=== PATIENT | female | born 1960 | race Caucasian/White ===

== ENCOUNTER → 2017-12-03 | Outpatient (CLI) | payer MEDICARE, OTHER ==
[~2017-12-03] MED LIST: CATHETER FLUSH 10 ML SYR IV PRN; REGADENOSON 0.4 MG/5 ML SYR (LEXISCAN) IV ONE
[2017-12-03 08:53] VITALS: BP 116/70
--- NOTE | 2017-12-03 09:51 | Cardiology Stress Test Report ---
Stress Test Report Type of NM Stress Test: Test Type: LEXISCAN 0.4MG/5ML Date of Procedure/Referring: Date of Procedure: Dec 03, 2017 PCP Anuj Rose MD Admitting Physician Janis Garibay MD Indications: Anterior chest wall pain, shortness of breath, diabetes, hypertension, active smoking Baseline Heart Rate: 100 Baseline Blood Pressure: Blood Pressure Systolic: 116 Blood Pressure Diastolic: 70 Baseline EKG: Baseline EKG: sinus rhythm Summary & Conclusion: Summary: The patient was brought to the stress lab after informed consent was taken. Stress test was performed according to the Lexiscan protocol. 0.4 mg of IV Lexiscan was given. Baseline EKG showed sinus rhythm at 100 BPM. Initial blood pressure was 116/70 mmHg. Maximum heart rate was 114 bpm and blood pressure 137/85 mmHg. Patient did not have any chest pain, arrhythmias or ST segment changes during the stress test. 10.71 mCi of Myoview were given for rest imaging and 29.1 mCi of Myoview given for stress imaging. Transient ischemic dilatation score 1.03, EF 69 percent. Normal wall motion. Normal myocardial perfusion imaging during rest and stress. Conclusion: Pharmacological stress test was negative for ischemia. Normal LV function with no wall motion abnormalities. Normal myocardial perfusion imaging during rest and stress. Anuj ROSE MD Dec 03, 2017 9:51 am
== END ==
LOC: CARD 07:21
PROVIDERS: ATTEND Internal Medicine Interventional Cardiology
DX: Z01.810 Encounter for preprocedural cardiovascular examination (principal); R07.89 Other chest pain; E11.9 Type 2 diabetes mellitus without complications; R79.89 Other specified abnormal findings of blood chemistry; B19.20 Unspecified viral hepatitis C without hepatic coma; I10 Essential (primary) hypertension; R06.02 Shortness of breath; F17.200 Nicotine dependence, unspecified, uncomplicated; E66.01 Morbid (severe) obesity due to excess calories
CPT/HCPCS: 78452; 93017

== ENCOUNTER → 2018-03-02 | Outpatient (CLI) | payer MEDICARE ==
[~2018-03-02] MED LIST changes: +BUPR100T15 PO; +BUSP10TA95 PO; +CARB200T6 PO; -CATHETER FLUSH 10 ML SYR IV PRN; +CHOL100045 PO; +CHOL4PAC2 PO; +GLIM1TAB PO; +LEVO75TA6 PO; +LISI-552 PO; +LORA1TAB PO; +METF-397 PO; +OMEP20CA12 PO; -REGADENOSON 0.4 MG/5 ML SYR (LEXISCAN) IV ONE; +SAXA5TAB PO; +TERA10CA3 PO
== END ==
LOC: EDSEX → LAB 08:46
PROVIDERS: ATTEND Internal Medicine Endocrinology, Diabetes & Metabolism
DX: E11.9 Type 2 diabetes mellitus without complications (principal); D35.2 Benign neoplasm of pituitary gland
CPT/HCPCS: 36415; 82040; 83001; 83002; 84270; 84402; 84403

== ENCOUNTER 2018-03-04 05:32 | Outpatient (CLI) | payer MEDICARE ==
[~2018-03-04] VITALS: Ht 170.2 cm; Wt 122.9 kg
[2018-03-04] MEDS ORDERED: CARB200T6 PO (09:37)
[2018-03-04] MEDS ORDERED: GLIM1TAB PO (09:37)
[2018-03-04] MEDS ORDERED: CHOL100045 PO (09:37)
[2018-03-04] MEDS ORDERED: BUPR100T15 PO (09:37)
[2018-03-04] MEDS ORDERED: TERA10CA3 PO (09:37)
[2018-03-04] MEDS ORDERED: LISI-552 PO (09:37)
[2018-03-04] MEDS ORDERED: SAXA5TAB PO (09:37)
[2018-03-04] MEDS ORDERED: METF-397 PO (09:37)
[2018-03-04] MEDS ORDERED: LORA1TAB PO (09:37)
[2018-03-04] MEDS ORDERED: LEVO75TA6 PO (09:37)
[2018-03-04] MEDS ORDERED: CHOL4PAC2 PO (09:37)
[2018-03-04] MEDS ORDERED: OMEP20CA12 PO (09:37)
[2018-03-04] MEDS ORDERED: BUSP10TA95 PO (09:37)
== END 2018-03-04 10:00 | disposition home or self-care (01) ==
LOC: PREOP 05:32 → EDSEX 05:32 → PREOP 10:00
PROVIDERS: ATTEND Surgery
DX: Z01.818 Encounter for other preprocedural examination (principal)

== ENCOUNTER 2018-03-11 09:21 | Day surgery (SDC) | payer MEDICARE, OTHER ==
[~2018-03-11] VITALS: Ht 170.2 cm; Wt 122.9 kg
[2018-03-11] MEDS ORDERED: fentaNYL INJECTION 100 MCG/2 ML AMP IVP ONE (09:30)
[2018-03-11] MEDS ORDERED: MIDAZOLAM 2 MG/2 ML (VERSED) VIAL IVP ONE (09:30)
[2018-03-11] MEDS ORDERED: NS IV 500 ML 500 ML IV PRN (09:30)
[2018-03-11 09:56] VITALS: BP 148/83
[2018-03-11] MEDS ORDERED: MIDAZOLAM 2 MG/2 ML (VERSED) VIAL ONE ×6 (10:00→10:46)
[2018-03-11] MEDS ORDERED: fentaNYL INJECTION 100 MCG/2 ML AMP ONE ×2 (10:00→10:29)
[2018-03-11] MEDS ORDERED: LIDOCAINE JELLY 2% 6 ML SYRINGE ONE (10:00)
--- NOTE | 2018-03-11 10:29 | Conscious Sedation/ASA ---
Conscious Sedation Pre-Proced Time 09:30 ASA Score 3 For ASA 3 and 4: Consider anesthesia and medical clearance. Also, for patients with a history of failed moderate sedation consider anesthesia. Airway Lungs Heart ASA score ASA 1: a normal healthy patient ASA 2: a patient with a mild systemic disease (mid diabetes, controlled hypertension, obesity ASA 3: a patient with a severe systemic disease that limits activity (angina , COPD, prior Myocardial infarction) ASA 4: a patient with an incapacitating disease that is a constant threat to life (CHF, renal failure) ASA 5: a moribund patient not expected to survive 24 hrs. (ruptured aneurysm) ASA 6: a declared brain patient whose organs are being harvested. For emergent operations, add the letter E after the classification Mallampati Classification Grade 3 Sedation Plan Analgesia, Amnesia, Plan communicated to team members, Discussed options with patient/fam, Discussed risks with patient/fam The patient is an appropriate candidate to undergo the planned procedure, sedation, and anesthesia. The patient immediately re-assessed prior to indication. HAILE QUIGLEY MD Mar 11, 2018 10:29
[2018-03-11] MEDS ORDERED: morphine INJ 10 MG/ML 1ML (SYR OR VIAL) IV PRN (10:30)
[2018-03-11] MEDS ORDERED: ONDANSETRON 4 MG/2 ML (SDV) Z0FRAN IV PRN (10:30)
[2018-03-11] MEDS ORDERED: HYDROcodone/APAP 5 MG/325 MG (LORTAB) TAB PO PRN (10:30)
[2018-03-11] MEDS ORDERED: ACETAMINOPHEN 325 MG TABLET PO PRN (10:30)
--- NOTE | 2018-03-11 10:30 | Progress Note-Pre Operative ---
Pre-Operative Progress Note H&P Reviewed The H&P was reviewed, patient examined and no changes noted. Date Seen by Provider: Mar 11, 2018 Time Seen by Provider: :30 Date H&P Reviewed: Mar 11, 2018 Time H&P Reviewed: :30 Pre-Operative Diagnosis: HAILE PARIS MD Mar 11, 2018 10:30
[2018-03-11] MEDS ORDERED: PANT40TA2 PO (10:31)
--- NOTE | 2018-03-11 10:32 | Discharge Inst-Surgical ---
D/C Lap Instructions-KIDO New, Converted, or Re-Newed RX: RX on Chart Follow Up PRN Activity as tolerated High Fiber Diet 25g or more per day Avoid Alcohol, Caffeine, Spicy Warner and Acid foods. Drink 64 fluid oz or more of fluids per day. Symptoms to Report: Fever over 101 degree F, Nausea/Vomiting If any problems/questions: Contact your physician or go to Emergency Room HAILE QUIGLEY MD Mar 11, 2018 10:32
[2018-03-11 11:05] VITALS: BP 119/61
[2018-03-11] MEDS ORDERED: LIDOCAINE JELLY 2% 6 ML SYRINGE TOP ONE (11:15)
--- NOTE | 2018-03-11 11:18 | Progress Note-Post Operative ---
Post-Operative Progess Note Surgeon (s)/Saddle Stitch Operator (s) Surgeon HAILE QUIGLEY MD Saddle Stitch Operator: none Pre-Operative Diagnosis GERD Post-Operative Diagnosis moderate chronic stage 2-3 ext and int hemorrhoids. Procedure & Operative Findings Date of Procedure 03/11/18 Procedure Performed/Findings Colonoscopy Anesthesia Type CS Estimated Blood Loss Estimated blood loss (mL): minimal Specimens/Packing Specimens Removed none HAILE QUIGLEY MD Mar 11, 2018 11:18
[2018-03-11 11:35] VITALS: BP 130/68
[2018-03-11 12:25] VITALS: BP 130/68
--- NOTE | 2018-03-11 18:03 | OPERATIVE REPORT ---
DATE OF SERVICE: 03/11/2018 ATTENDING PRIMARY CARE PHYSICIAN: Dr. Wolfe at the [facility]. PREOPERATIVE DIAGNOSIS: Screening colonoscopy. POSTOPERATIVE DIAGNOSIS: Mild chronic between stage 2 and 3 external and internal hemorrhoids, remainder of the rectum and colon were normal. PROCEDURE PERFORMED: Colonoscopy. SURGEON: Haile Quigley MD. ANESTHESIA: Conscious sedation. ESTIMATED BLOOD LOSS: Minimal. FINDINGS: Moderate chronic between stage 2 and 3 external and internal hemorrhoids identified not actively edematous or inflamed and no bleeding. Normal sphincter tone was felt and there were no palpable masses. Prostate gland was palpable and appeared normal. The remainder of the colon and rectum were normal. There were no polyps identified. DISPOSITION: The patient tolerated the procedure well. INDICATIONS: The patient is a 57-year-old male in need of a screening colonoscopy. He has not had a colonoscopy up to this point in his life. He also does report some mild symptoms. Since he had a cholecystectomy in 2013, he has had intermittent issues of diarrhea and would have 4 to 7 bowel movements daily. He also reports that he has had anal fissure repair in 1998 and has had issues with stool incontinence. He reports that throughout the day, his stools become more loose and he will notice some mucousy type of stool; however, no blood. He does not report any abdominal pain. 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 DESCRIPTION OF PROCEDURE: The patient was brought to the endoscopy suite, laid in left lateral decubitus position. After adequate IV pain and sedating medications and conscious sedation anesthesia, digital rectal examination was performed. Moderate to chronic stage 2 to 3 external and internal hemorrhoids were identified, which were not actively edematous nor inflamed and no bleeding. Normal sphincter tone was felt and there were no palpable masses. Prostate gland was palpable and appeared normal. The endoscope was then intubated to the anus and rectum gently insufflated. The endoscope was then advanced to the [facility]. The rectum with no polyps or any neoplasms identified. There was also no mucosal inflammatory change to indicate any proctitis. The endoscope was then advanced to the sigmoid colon where no diverticulosis identified. We then proceeded to remainder of the descending, transverse, ascending colon and the cecum. There were no mucosal inflammatory changes as well as no polyps or any neoplasms identified. The endoscope was then slowly withdrawn while taking a second look and suctioning of residual air with no additional findings. The patient tolerated the procedure well. We will recommend medical management with a high fiber diet with at least 30 grams of fiber per day as well as significant amounts of water on a daily basis to promote soft stools on a daily basis, which is not watery diarrhea as well as not hard or formed and somewhere in between. He does not need another colonoscopy for another 10 years; however, sooner if he becomes symptomatic. Job ID: [id number] DocumentID: [id number] Dictated Date: 03/11/2018 11:04:20 Mud Mixer Operator Date: 03/11/2018 18:02:16 Dictated By: HAILE QUIGLEY MD
== END 2018-03-11 12:25 | disposition home or self-care (01) ==
LOC: EDSEX → ENDO 09:21
PROVIDERS: ATTEND Surgery
DX: Z12.11 Encounter for screening for malignant neoplasm of colon (principal); K64.1 Second degree hemorrhoids; E11.9 Type 2 diabetes mellitus without complications; I10 Essential (primary) hypertension; E03.9 Hypothyroidism, unspecified; B19.20 Unspecified viral hepatitis C without hepatic coma; K75.81 Nonalcoholic steatohepatitis (NASH); F43.10 Post-traumatic stress disorder, unspecified; K21.9 Gastro-esophageal reflux disease without esophagitis; Z79.84 Long term (current) use of oral hypoglycemic drugs; Z79.899 Other long term (current) drug therapy
CPT/HCPCS: 82962

== ENCOUNTER → 2018-04-01 | Outpatient (CLI) | payer OTHER ==
[~2018-04-01] MED LIST changes: +PANT40TA2 PO
--- NOTE | 2018-04-01 20:07 | Diagnostic Imaging Report ---
PROCEDURE: CT head without contrast. TECHNIQUE: Multiple contiguous axial images were obtained through the brain without the use of intravenous contrast. INDICATION: Pituitary mass, postop, head pain and sinus pressure. COMPARISON: I have no previous for comparison. FINDINGS: The ventricular calibers and the degree of sulcation are somewhat greater than typically encountered in a patient of this age and mild premature atrophy is suggested. There is no evidence for focal or generalized edema. No mass or mass effect within the brain. No shift, herniation, or evidence for elevated pressures. The partially visualized paranasal sinuses are clear aside from mild membrane thickening within the sphenoid. There is no mastoid effusion. Lucency at the expanded sella is presumed to reflect a postoperative cavity in this patient with reported macroadenoma removal. No acute-appearing abnormality. IMPRESSION: 1. Borderline mild premature atrophy. No hemorrhage, edema, or acute finding. Sellar expansion and central lucency probably reflect postoperative cavity in this patient with previous macroadenoma. Residual or recurrent tumor would require MRI pituitary protocol for evaluation if this is the clinical suspicion. 2. An acute-appearing abnormality is not identified. Dictated by: Dictated on workstation # [id number]
== END ==
LOC: RAD 14:02
PROVIDERS: ATTEND Family Medicine
DX: G31.9 Degenerative disease of nervous system, unspecified (principal); E23.6 Other disorders of pituitary gland; D44.3 Neoplasm of uncertain behavior of pituitary gland; D35.2 Benign neoplasm of pituitary gland; H54.7 Unspecified visual loss; Z98.890 Other specified postprocedural states
CPT/HCPCS: 70450

== ENCOUNTER → 2018-05-02 | Outpatient (CLI) | payer OTHER ==
[~2018-05-02] MED LIST changes: +RT-ALBUTEROL SULF 2.5 MG/3 ML PRE-MIX VIAL INH ONE; +RT-ALBUTEROL SULF 2.5 MG/3 ML PRE-MIX VIAL ONE
== END ==
LOC: RT 15:52
PROVIDERS: ATTEND Family Medicine
DX: J44.9 Chronic obstructive pulmonary disease, unspecified (principal); Z72.0 Tobacco use
CPT/HCPCS: 94060; 94726; 94729

== ENCOUNTER 2018-05-30 11:49 | Outpatient (RCR) | payer MEDICARE, OTHER ==
[~2018-05-30 11:49] MED LIST changes: -RT-ALBUTEROL SULF 2.5 MG/3 ML PRE-MIX VIAL INH ONE; -RT-ALBUTEROL SULF 2.5 MG/3 ML PRE-MIX VIAL ONE
== END 2018-08-28 | disposition home or self-care (01) ==
LOC: LAB 11:49 → EDSTATUS 06-14 14:56
PROVIDERS: ATTEND Internal Medicine Endocrinology, Diabetes & Metabolism
DX: E11.9 Type 2 diabetes mellitus without complications (principal); D35.2 Benign neoplasm of pituitary gland; K52.9 Noninfective gastroenteritis and colitis, unspecified
CPT/HCPCS: 36415; 83001; 84403

== ENCOUNTER → 2018-06-20 | Outpatient (CLI) | payer MEDICARE ==
[2018-06-20 15:11] LABS: BASOPHILS % (AUTO) 0 % (0-10); EOSINOPHILS % (AUTO) 0 % (0-10); HEMATOCRIT 40 % (40-54); HEMOGLOBIN 13.8 G/DL (13.3-17.7); LYMPHOCYTES # (AUTO) 1.3 X 10^3 (1.0-4.0); LYMPHOCYTES % (AUTO) 35 % (12-44); MEAN CORPUSCULAR HEMOGLOBIN 33 PG (25-34); MEAN CORPUSCULAR HGB CONC 34 G/DL (32-36); MEAN CORPUSCULAR VOLUME 96 FL (80-99); MEAN PLATELET VOLUME 10.9 FL (7.4-10.4); MONOCYTES # (AUTO) 0.3 X 10^3 (0.0-1.0); MONOCYTES % (AUTO) 7 % (0-12); NEUTROPHILS # (AUTO) 2.3 X 10^3 (1.8-7.8); NEUTROPHILS % (AUTO) 58 % (42-75); PLATELET COUNT 78 10^3/uL (130-400); RED CELL DISTRIBUTION WIDTH 12.9 % (10.0-14.5); WHITE BLOOD COUNT 3.9 10^3/uL (4.3-11.0)
[2018-06-20 15:26] LABS: INR 1.1 (0.8-1.4); PROTHROMBIN TIME PATIENT 14.6 SEC (12.2-14.7)
[2018-06-20 15:34] LABS: ALANINE AMINOTRANSFERASE 51 U/L (0-55); ALBUMIN 4.4 GM/DL (3.2-4.5); ALKALINE PHOSPHATASE 57 U/L (40-136); BILIRUBIN,TOTAL 0.5 MG/DL (0.1-1.0); BUN/CREATININE RATIO 16; CALCIUM 9.9 MG/DL (8.5-10.1); CARBON DIOXIDE 22 MMOL/L (21-32); CHLORIDE 106 MMOL/L (98-107); CREATININE SERUM 1.08 MG/DL (0.60-1.30); GFR ESTIMATED > 60; GLUCOSE 116 MG/DL (70-105); SODIUM 141 MMOL/L (135-145); TOTAL PROTEIN 8.5 GM/DL (6.4-8.2)
== END ==
LOC: LAB 14:30
PROVIDERS: ATTEND Internal Medicine
DX: B18.2 Chronic viral hepatitis C (principal); K74.60 Unspecified cirrhosis of liver
CPT/HCPCS: 36415; 80053; 82105; 85025; 85610; 86703; 86705; 86706; 87340; 87522; 87902; 87912

== ENCOUNTER → 2018-07-19 | Outpatient (CLI) | payer MEDICARE, OTHER ==
--- NOTE | 2018-07-19 12:22 | Diagnostic Imaging Report ---
PROCEDURE: US Hepatic (Liver). TECHNIQUE: Multiple real-time grayscale images were obtained over the right upper quadrant in various projections. INDICATION: Cirrhosis and hepatitis C. FINDINGS: Liver is enlarged at 21 cm. There is some increased echogenicity to the liver suggestive of hepatic steatosis. No discrete liver mass is identified. The portal vein is patent and shows normal direction of flow. The gallbladder is surgically absent. No biliary ductal dilatation is seen. Pancreas was obscured by bowel gas. The right kidney is unremarkable. There is no ascites. IMPRESSION: 1. Hepatomegaly and hepatic steatosis. No discrete liver mass is detected. 2. Cholecystectomy. Dictated by: Dictated on workstation # [id number]
== END ==
LOC: RAD 09:03
PROVIDERS: ATTEND Internal Medicine
DX: K76.0 Fatty (change of) liver, not elsewhere classified (principal); K74.60 Unspecified cirrhosis of liver; B19.20 Unspecified viral hepatitis C without hepatic coma; Z90.49 Acquired absence of other specified parts of digestive tract
CPT/HCPCS: 76705

== ENCOUNTER → 2018-09-08 | Outpatient (CLI) | payer MEDICARE, OTHER ==
[2018-09-08 14:47] LABS: BASOPHILS % (AUTO) 0 % (0-10); EOSINOPHILS % (AUTO) 0 % (0-10); HEMATOCRIT 42 % (40-54); HEMOGLOBIN 14.2 G/DL (13.3-17.7); LYMPHOCYTES # (AUTO) 1.4 X 10^3 (1.0-4.0); LYMPHOCYTES % (AUTO) 38 % (12-44); MEAN CORPUSCULAR HEMOGLOBIN 33 PG (25-34); MEAN CORPUSCULAR HGB CONC 34 G/DL (32-36); MEAN CORPUSCULAR VOLUME 98 FL (80-99); MEAN PLATELET VOLUME 11.1 FL (7.4-10.4); MONOCYTES # (AUTO) 0.3 X 10^3 (0.0-1.0); MONOCYTES % (AUTO) 8 % (0-12); NEUTROPHILS % (AUTO) 54 % (42-75); PLATELET COUNT 79 10^3/uL (130-400); RED CELL DISTRIBUTION WIDTH 13.4 % (10.0-14.5); WHITE BLOOD COUNT 3.7 10^3/uL (4.3-11.0)
[2018-09-08 15:08] LABS: ALANINE AMINOTRANSFERASE 53 U/L (0-55); ALBUMIN 4.6 GM/DL (3.2-4.5); ALKALINE PHOSPHATASE 56 U/L (40-136); BILIRUBIN,TOTAL 0.4 MG/DL (0.1-1.0); BUN/CREATININE RATIO 19; CARBON DIOXIDE 26 MMOL/L (21-32); CHLORIDE 104 MMOL/L (98-107); CREATININE SERUM 1.18 MG/DL (0.60-1.30); GFR ESTIMATED > 60; GLUCOSE 119 MG/DL (70-105); POTASSIUM 3.9 MMOL/L (3.6-5.0); SODIUM 139 MMOL/L (135-145); TOTAL PROTEIN 8.8 GM/DL (6.4-8.2)
== END ==
LOC: LAB 14:25
PROVIDERS: ATTEND Internal Medicine Endocrinology, Diabetes & Metabolism
DX: E11.9 Type 2 diabetes mellitus without complications (principal); E29.1 Testicular hypofunction
CPT/HCPCS: 36415; 80053; 82607; 84402; 84403; 85025

== ENCOUNTER → 2019-01-26 | Outpatient (CLI) | payer MEDICARE, OTHER ==
[~2019-01-26] MED LIST changes: -OMEP20CA12 PO; +OMEP20CA13 PO
[2019-01-26 14:12] LABS: BASOPHILS % (AUTO) 1 % (0-10); EOSINOPHILS # (AUTO) 0.1 10^3/uL (0.0-0.3); EOSINOPHILS % (AUTO) 2 % (0-10); HEMATOCRIT 46 % (40-54); HEMOGLOBIN 15.3 G/DL (13.3-17.7); LYMPHOCYTES # (AUTO) 1.2 X 10^3 (1.0-4.0); LYMPHOCYTES % (AUTO) 32 % (12-44); MEAN CORPUSCULAR HEMOGLOBIN 32 PG (25-34); MEAN CORPUSCULAR HGB CONC 34 G/DL (32-36); MEAN CORPUSCULAR VOLUME 95 FL (80-99); MEAN PLATELET VOLUME 11.8 FL (7.4-10.4); MONOCYTES # (AUTO) 0.3 X 10^3 (0.0-1.0); MONOCYTES % (AUTO) 8 % (0-12); NEUTROPHILS # (AUTO) 2.1 X 10^3 (1.8-7.8); NEUTROPHILS % (AUTO) 58 % (42-75); PLATELET COUNT 74 10^3/uL (130-400); RED CELL DISTRIBUTION WIDTH 12.9 % (10.0-14.5); WHITE BLOOD COUNT 3.6 10^3/uL (4.3-11.0)
[2019-01-26 14:50] LABS: FREE T4 (FREE THYROXINE) 0.87 NG/DL (0.70-1.48)
== END ==
LOC: LAB 13:46
PROVIDERS: ATTEND Internal Medicine Endocrinology, Diabetes & Metabolism
DX: D35.2 Benign neoplasm of pituitary gland (principal); E03.8 Other specified hypothyroidism; E29.1 Testicular hypofunction
CPT/HCPCS: 36415; 84153; 84270; 84402; 84403; 84439; 84443; 85025

== ENCOUNTER → 2019-03-06 | Outpatient (CLI) | payer OTHER ==
[~2019-03-06] MED LIST changes: -GLIM1TAB PO; +GLIM1TAB2 PO; +OMEP-280 PO; -OMEP20CA13 PO
--- NOTE | 2019-03-06 15:47 | Diagnostic Imaging Report ---
INDICATION: Positive TB skin test. TIME OF EXAM: 03:03 p.m. COMPARISON: No prior studies are available for comparison. FINDINGS: The heart size is normal. The pulmonary vascularity is unremarkable. No infiltrates are seen. No findings to suggest TB are identified. There is no effusion or pneumothorax. IMPRESSION: No acute cardiopulmonary process is detected. Dictated by: Dictated on workstation # [id number]
== END ==
LOC: RAD 13:48
PROVIDERS: ATTEND Family Medicine
DX: R76.11 Nonspecific reaction to tuberculin skin test without active tuberculosis (principal)
CPT/HCPCS: 71046

== ENCOUNTER → 2019-10-20 | Outpatient (CLI) | payer MEDICARE ==
[~2019-10-20] MED LIST changes: -GLIM1TAB2 PO; +GLIM1TAB4 PO; -OMEP-280 PO; +OMEP20CA18 PO
[2019-10-20 14:08] LABS: BASOPHILS % (AUTO) 1 % (0-10); EOSINOPHILS # (AUTO) 0.3 10^3/uL (0.0-0.3); EOSINOPHILS % (AUTO) 4 % (0-10); HEMATOCRIT 45 % (40-54); LYMPHOCYTES # (AUTO) 2.2 X 10^3 (1.0-4.0); LYMPHOCYTES % (AUTO) 39 % (12-44); MEAN CORPUSCULAR HEMOGLOBIN 32 PG (25-34); MEAN CORPUSCULAR HGB CONC 34 G/DL (32-36); MEAN CORPUSCULAR VOLUME 95 FL (80-99); MEAN PLATELET VOLUME 10.6 FL (7.4-10.4); MONOCYTES # (AUTO) 0.4 X 10^3 (0.0-1.0); MONOCYTES % (AUTO) 6 % (0-12); NEUTROPHILS # (AUTO) 2.8 X 10^3 (1.8-7.8); NEUTROPHILS % (AUTO) 50 % (42-75); PLATELET COUNT 123 10^3/uL (130-400); RED CELL DISTRIBUTION WIDTH 13.9 % (10.0-14.5); WHITE BLOOD COUNT 5.7 10^3/uL (4.3-11.0)
[2019-10-20 14:21] LABS: ALBUMIN 4.5 GM/DL (3.2-4.5); CHLORIDE 106 MMOL/L (98-107); POTASSIUM 4.4 MMOL/L (3.6-5.0); SODIUM 141 MMOL/L (135-145)
[2019-10-20 14:22] LABS: CALCIUM 9.8 MG/DL (8.5-10.1)
[2019-10-20 14:23] LABS: TRIGLYCERIDES 182 MG/DL (<150); VLDL CHOLESTEROL 36 MG/DL (5-40)
[2019-10-20 14:24] LABS: GLUCOSE 97 MG/DL (70-105); TOTAL PROTEIN 8.4 GM/DL (6.4-8.2)
[2019-10-20 14:25] LABS: CARBON DIOXIDE 23 MMOL/L (21-32)
[2019-10-20 14:26] LABS: BILIRUBIN,TOTAL 0.7 MG/DL (0.1-1.0)
[2019-10-20 14:27] LABS: ALKALINE PHOSPHATASE 93 U/L (40-136); CREATININE SERUM 1.04 MG/DL (0.60-1.30); GFR ESTIMATED > 60
[2019-10-20 14:28] LABS: CHOLESTEROL 171 MG/DL (< 200)
[2019-10-20 14:29] LABS: BUN/CREATININE RATIO 18
[2019-10-20 14:30] LABS: ALANINE AMINOTRANSFERASE 29 U/L (0-55); HDL CHOLESTEROL 44 MG/DL (40-60)
== END ==
LOC: LAB 13:41
PROVIDERS: ATTEND Internal Medicine Endocrinology, Diabetes & Metabolism
DX: E29.1 Testicular hypofunction (principal); E11.9 Type 2 diabetes mellitus without complications
CPT/HCPCS: 36415; 80053; 80061; 82043; 84403; 84443; 85025

== ENCOUNTER → 2019-11-10 | Outpatient (CLI) | payer MEDICARE ==
[2019-11-10 15:02] LABS: ALANINE AMINOTRANSFERASE 19 U/L (0-55); ALBUMIN 4.4 GM/DL (3.2-4.5); ALKALINE PHOSPHATASE 83 U/L (40-136); BILIRUBIN,TOTAL 0.6 MG/DL (0.1-1.0); BUN/CREATININE RATIO 13; CALCIUM 9.2 MG/DL (8.5-10.1); CARBON DIOXIDE 27 MMOL/L (21-32); CHLORIDE 105 MMOL/L (98-107); CREATININE SERUM 1.04 MG/DL (0.60-1.30); GFR ESTIMATED > 60; GLUCOSE 93 MG/DL (70-105); POTASSIUM 3.9 MMOL/L (3.6-5.0); SODIUM 141 MMOL/L (135-145)
== END ==
LOC: LAB 14:12
PROVIDERS: ATTEND Internal Medicine Endocrinology, Diabetes & Metabolism
DX: D35.2 Benign neoplasm of pituitary gland (principal)
CPT/HCPCS: 36415; 80053; 83935

== ENCOUNTER → 2019-11-16 | Outpatient (CLI) | payer MEDICARE ==
[2019-11-16 15:37] LABS: BASOPHILS % (AUTO) 1 % (0-10); EOSINOPHILS # (AUTO) 0.1 10^3/uL (0.0-0.3); EOSINOPHILS % (AUTO) 3 % (0-10); HEMATOCRIT 41 % (40-54); HEMOGLOBIN 13.3 g/dL (13.3-17.7); LYMPHOCYTES # (AUTO) 1.7 10^3/uL (1.0-4.0); LYMPHOCYTES % (AUTO) 45 % (12-44); MEAN CORPUSCULAR HEMOGLOBIN 30 pg (25-34); MEAN CORPUSCULAR HGB CONC 32 g/dL (32-36); MEAN CORPUSCULAR VOLUME 93 fL (80-99); MEAN PLATELET VOLUME 11.7 fL (9.0-12.2); MONOCYTES # (AUTO) 0.3 10^3/uL (0.0-1.0); MONOCYTES % (AUTO) 7 % (0-12); NEUTROPHILS # (AUTO) 1.6 10^3/uL (1.8-7.8); NEUTROPHILS % (AUTO) 43 % (42-75); PLATELET COUNT 83 10^3/uL (130-400); WHITE BLOOD COUNT 3.6 10^3/uL (4.3-11.0)
== END ==
LOC: LAB 14:50
PROVIDERS: ATTEND Internal Medicine Endocrinology, Diabetes & Metabolism
DX: D35.2 Benign neoplasm of pituitary gland (principal)
CPT/HCPCS: 36415; 82533; 84439; 85025

== ENCOUNTER → 2019-12-14 | Outpatient (CLI) | payer MEDICARE ==
[~2019-12-14] VITALS: Ht 170 cm; Wt 109.0 kg
[~2019-12-14] MED LIST changes: +COSYNTROPIN 0.25 MG/ML (CORTROSYN) VIAL IV ONE
[2019-12-14 08:41] VITALS: BP 147/81
== END ==
LOC: SDC 08:03
PROVIDERS: ATTEND Internal Medicine Endocrinology, Diabetes & Metabolism
DX: D35.2 Benign neoplasm of pituitary gland (principal); E29.1 Testicular hypofunction; E03.8 Other specified hypothyroidism; E11.9 Type 2 diabetes mellitus without complications
CPT/HCPCS: 36415; 82088; 82533; 96372

== ENCOUNTER → 2020-04-23 | Outpatient (CLI) | payer MEDICARE ==
[~2020-04-23] MED LIST changes: -COSYNTROPIN 0.25 MG/ML (CORTROSYN) VIAL IV ONE; -LISI-552 PO; +LISI20TA26 PO
--- NOTE | 2020-04-23 12:17 | Diagnostic Imaging Report ---
PROCEDURE: CT head without contrast. TECHNIQUE: Multiple contiguous axial images were obtained through the brain without the use of intravenous contrast. Auto Exposure Controls were utilized during the CT exam to meet ALARA standards for radiation dose reduction. INDICATION: Recurrent pituitary adenoma and recurrent dizziness. COMPARISON: Correlation is made with prior CT head from 11/09/2019. FINDINGS: Ventricular size and sulcal pattern appear to be stable. There is a right-sided PRODUCTION HAND shunt tube with the tip in the region of the third ventricle. No sulcal effacement or midline shift is identified. No acute intra-axial or extra-axial hemorrhage is detected. There is some soft tissue fullness in the right aspect of the sella, similar to prior CT from [facility] on 11/09/2019. This may represent patient's known pituitary adenoma. Cisterns are patent. Visualized paranasal sinuses are clear apart from mild mucosal thickening of the left maxillary and sphenoid sinus. IMPRESSION: Overall stable noncontrast head CT when compared with prior exam from 11/09/2019. No acute feature is detected. Dictated by: Dictated on workstation # [id number]
== END ==
LOC: RAD 11:45
PROVIDERS: ATTEND Radiology Radiation Oncology
DX: D35.2 Benign neoplasm of pituitary gland (principal); R42 Dizziness and giddiness
CPT/HCPCS: 70450

== ENCOUNTER 2020-04-25 14:10 | Outpatient (RCR) | payer MEDICARE | END 2020-05-27 | disposition home or self-care (01) | LOC: ONC 14:10 | PROVIDERS: ATTEND Radiology Radiation Oncology | DX: D35.2 Benign neoplasm of pituitary gland (principal); I10 Essential (primary) hypertension; E11.9 Type 2 diabetes mellitus without complications; F17.210 Nicotine dependence, cigarettes, uncomplicated; Z80.2 Family history of malignant neoplasm of other respiratory and intrathoracic organs | CPT/HCPCS: 77300; 77301; 77334; 77338; G0463; 77336; 77386; 99205 ==

== ENCOUNTER 2020-04-28 02:42 | Outpatient (RCR) | payer MEDICARE | END 2020-07-27 | disposition home or self-care (01) | LOC: ONC 02:42 | PROVIDERS: ATTEND Radiology Radiation Oncology | DX: D35.2 Benign neoplasm of pituitary gland (principal); I10 Essential (primary) hypertension; E11.9 Type 2 diabetes mellitus without complications; F17.210 Nicotine dependence, cigarettes, uncomplicated; Z80.2 Family history of malignant neoplasm of other respiratory and intrathoracic organs; Z90.49 Acquired absence of other specified parts of digestive tract | CPT/HCPCS: 77336 ==

== ENCOUNTER → 2021-08-06 | Outpatient (CLI) | payer OTHER ==
[~2021-08-06] MED LIST changes: +CHOL4PAC14 PO; -CHOL4PAC2 PO
--- NOTE | 2021-08-06 17:40 | Diagnostic Imaging Report ---
EXAMINATION: CT chest without contrast (lung screening). TECHNIQUE: Multiple contiguous axial images were obtained through the chest without the use of intravenous contrast according to lung cancer screening protocol. All CT scans use one or more of the following dose optimizing techniques: automated exposure control, MA and/or KvP adjustment based on patient size and exam type or iterative reconstruction. HISTORY: 45 pack year history of smoking. COMPARISON: None available. FINDINGS: Thyroid: The thyroid is normal. Mediastinum: Heart size is normal without significant pericardial effusion. The aorta is normal in caliber. No suspicious lymphadenopathy. Lungs and airways: There are background emphysematous changes of lungs without consolidation, pleural effusion, or pneumothorax. There is no suspicious pulmonary nodule. The airways are normal. Upper abdomen: The subphrenic structures are normal. Musculoskeletal: No suspicious osseous lesion or compression fracture. IMPRESSION: 1. No suspicious pulmonary nodules. Recommend continued annual low-dose CT screening. LUNG-RADS CATEGORY: 1 MODIFIER: None Dictated by: Dictated on workstation # [id number]
== END ==
LOC: RAD 15:15
PROVIDERS: ATTEND Family Medicine
DX: Z12.2 Encounter for screening for malignant neoplasm of respiratory organs (principal); F17.210 Nicotine dependence, cigarettes, uncomplicated
CPT/HCPCS: 71271

== ENCOUNTER 2021-12-26 20:03 | Outpatient (CLI) | payer OTHER ==
[~2021-12-26 20:03] MED LIST changes: -CHOL4PAC14 PO; +CHOL4POW4 PO
== END 2021-12-27 06:25 | disposition home or self-care (01) ==
LOC: SLEEP 20:03
PROVIDERS: ATTEND Internal Medicine Pulmonary Disease
DX: G47.33 Obstructive sleep apnea (adult) (pediatric) (principal); I10 Essential (primary) hypertension
CPT/HCPCS: 95811

== ENCOUNTER 2022-05-13 07:25 | Emergency (ER) | payer OTHER ==
[~2022-05-13] VITALS: Ht 170 cm; Wt 118.0 kg
--- NOTE | 2022-05-13 07:37 | ED General ---
General Chief Complaint: General Problems/Pain Stated Complaint: BACK PAIN History of Present Illness Date Seen by Provider: May 13, 2022 Time Seen by Provider: 07:35 Initial Comments 61-year-old male presents with back pain "radiating between his shoulder blades" with some numbness and tingling in his left arm. Patient has known cervical stenosis. He saw pain specialist earlier this week and is supposed to have a follow-up for injections. Patient presents today because he reports his symptoms are worse. He reports that he has seen a neurosurgeon in [place] and they told him it was too bad to do surgery. He denies any new injuries. He denies any chest pain. Allergies and Home Medications Allergies Coded Allergies: No Known Drug Allergies (Unverified , 03/04/18) Patient Home Medication List Home Medication List Reviewed: Yes Bupropion HCl (Bupropion HCl) 100 Mg Tablet, 200 MG PO BID, (Reported) Entered as Reported by: YELENA ROMERO on 03/04/18936 Buspirone HCl (Buspirone HCl) 10 Mg Tablet, 20 MG PO BID, (Reported) Entered as Reported by: YELENA ROMERO on 03/04/18 09 Carbamazepine (Carbamazepine) 200 Mg Tablet, 400 MG PO HS, (Reported) Entered as Reported by: YELENA ROMERO on 03/04/18936 Cholecalciferol (Vitamin D3) (Vitamin D) 1,000 Unit Tablet, 3,000 UNIT PO DAILY, (Reported) Entered as Reported by: YELENA ROMERO on 03/04/18936 Cholestyramine (with Sugar) (Cholestyramine Packet) 4 Gm Powd.pack, 4 GM PO QID, (Reported) Entered as Reported by: YELENA ROMERO on 03/04/18 09 Glimepiride (Glimepiride) 1 Mg Tablet, 0.5 MG PO DAILY, (Reported) Entered as Reported by: YELENA ROMERO on 03/04/18936 Levothyroxine Sodium (Levothyroxine Sodium) 75 Mcg Tablet, 75 MCG PO DAILY, (Reported) Entered as Reported by: YELENA ROMERO on 03/04/18 09 Lisinopril (Lisinopril) 20 Mg Tablet, 20 MG PO DAILY, (Reported) Entered as Reported by: YELENA ROMERO on 03/04/18 09 Lorazepam (Lorazepam) 1 Mg Tablet, 1 MG PO TID, (Reported) Entered as Reported by: YELENA ROMERO on 03/04/18936 Metformin HCl (Metformin HCl) 500 Mg Tablet, 500 MG PO BID, (Reported) Entered as Reported by: YELENA ROMERO on 03/04/18936 Omeprazole (Omeprazole) 20 Mg Capsule.dr, 40 MG PO BID, (Reported) Entered as Reported by: YELENA ROMERO on 03/04/18 09 Pantoprazole Sodium (Protonix) 40 Mg Tablet.dr, 40 MG PO DAILY Prescribed by: HAILE QUIGLEY on 03/11/18 1031 Saxagliptin HCl (Onglyza) 5 Mg Tablet, 5 MG PO DAILY, (Reported) Entered as Reported by: YELENA ROMERO on 03/04/18936 Terazosin HCl (Terazosin HCl) 10 Mg Capsule, 20 MG PO HS, (Reported) Entered as Reported by: YELENA ROMERO on 03/04/18936 Review of Systems Review of Systems Constitutional: No chills, No fever Respiratory: no symptoms reported Cardiovascular: no symptoms reported Genitourinary: no symptoms reported Musculoskeletal: see HPI Skin: no symptoms reported Psychiatric/Neurological: See HPI, Paresthesia Past Bsfluvc-Qdjwen-Gnpfud Hx Seasonal Allergies Seasonal Allergies: No Past Medical History Surgeries: Yes (BRAIN TUMOR REMOVED, LAMINECTOMY, ERCP, ANKLE FX'S, CATARACTS) Gallbladder, Vasectomy Respiratory: Yes Sleep Apnea Currently Using CPAP: Yes Cardiac: Yes Hypertension Neurological: Yes (HX BRAIN TUMOR) Sexually Transmitted Disease: No HIV/AIDS: No Genitourinary: Yes Kidney Stones Gastrointestinal: Yes (HX HEP C) Gastroesophageal Reflux, Chronic Diarrhea, Hepatitis Musculoskeletal: Yes (MILD) Arthritis, Chronic Back Pain Endocrine: Yes Hypothyroidsim, Diabetes, Non-Insulin dep HEENT: Yes (READING GLASSES) Loss of Vision: Bilateral Hearing Impairment: Denies Cancer: No Psychosocial: Yes Anxiety, PTSD, Bipolar, Depression Integumentary: Yes (DRY HANDS) Blood Disorders: No Adverse Reaction/Blood Tranf: No (N/A) Physical Exam Vital Signs Vital Signs - First Documented 05/13/22 07:33 Temp 36.3 Pulse 78 Resp 18 B/P (MAP) 179/94 (122) Pulse Ox 99 O2 Delivery Room Air Capillary Refill : Height, Weight, BMI Height: 5'7.00" Weight: 271lbs. 0.0oz. 122.578486iq; 42.4 BMI Method: General Appearance: No Apparent Distress HEENT: PERRL/EOMI, TMs Normal Neck: Tender Lateral Respiratory: Chest Non Tender, Lungs Clear, Normal Breath Sounds Cardiovascular: Regular Rate, Rhythm, No Edema Gastrointestinal: Non Tender, Soft Extremity: Normal Capillary Refill Neurologic/Psychiatric: Alert, Oriented x3, airdrop systems technician II-XII Norm as Tested Skin: Tattoos/Piercings Progress/Results/Core Measures Suspected Sepsis SIRS Temperature: Pulse: Respiratory Rate: Laboratory Tests 05/13/22 07:55: White Blood Count 4.1L Blood Pressure / Mean: Laboratory Tests 05/13/22 07:55: Creatinine 1.38H, Platelet Count 79L, Total Bilirubin 0.6 Results/Orders Lab Results Laboratory Tests Test 05/13/22 07:55 Range/Units White Blood Count 4.1 L 4.3-11.0 10^3/uL Red Blood Count 4.89 4.30-5.52 10^6/uL Hemoglobin 14.8 13.3-17.7 g/dL Hematocrit 43 40-54 % Mean Corpuscular Volume 88 80-99 fL Mean Corpuscular Hemoglobin 30 25-34 pg Mean Corpuscular Hemoglobin Concent 35 32-36 g/dL Red Cell Distribution Width 12.6 10.0-14.5 % Platelet Count 79 L 130-400 10^3/uL Mean Platelet Volume 12.6 H 9.0-12.2 fL Immature Granulocyte % (Auto) 1 % Neutrophils (%) (Auto) 49 42-75 % Lymphocytes (%) (Auto) 38 12-44 % Monocytes (%) (Auto) 7 0-12 % Eosinophils (%) (Auto) 5 0-10 % Basophils (%) (Auto) 1 0-10 % Neutrophils # (Auto) 2.0 1.8-7.8 10^3/uL Lymphocytes # (Auto) 1.6 1.0-4.0 10^3/uL Monocytes # (Auto) 0.3 0.0-1.0 10^3/uL Eosinophils # (Auto) 0.2 0.0-0.3 10^3/uL Basophils # (Auto) 0.0 0.0-0.1 10^3/uL Immature Granulocyte # (Auto) 0.0 0.0-0.1 10^3/uL Percent Immature Platelet Fraction 11.4 H 0.0-7.6 % Sodium Level 142 135-145 MMOL/L Potassium Level 4.0 3.6-5.0 MMOL/L Chloride Level 104 98-107 MMOL/L Carbon Dioxide Level 27 21-32 MMOL/L Anion Gap 11 5-14 MMOL/L Blood Urea Nitrogen 16 7-18 MG/DL Creatinine 1.38 H 0.60-1.30 MG/DL Estimat Glomerular Filtration Rate 57 BUN/Creatinine Ratio 12 Glucose Level 155 H 70-105 MG/DL Calcium Level 9.7 8.5-10.1 MG/DL Corrected Calcium 9.4 8.5-10.1 MG/DL Magnesium Level 1.7 1.6-2.4 MG/DL Total Bilirubin 0.6 0.1-1.0 MG/DL Aspartate Amino Transf (AST/SGOT) 21 5-34 U/L Alanine Aminotransferase (ALT/SGPT) 30 0-55 U/L Alkaline Phosphatase 33 L 40-136 U/L Troponin I < 0.028 <0.028 NG/ML Total Protein 7.5 6.4-8.2 GM/DL Albumin 4.4 3.2-4.5 GM/DL Smear Scan YES My Orders Orders - RUSTY DELGADILLOR L DO Cbc With Automated Diff (05/13/22 07:38) Comprehensive Metabolic Panel (05/13/22 07:38) Magnesium (05/13/22 07:38) Troponin I [place]a (05/13/22 07:38) Chest Pa/Lat (2 View) (05/13/22 07:38) Ekg Tracing (05/13/22 07:38) Monitor-Rhythm Ecg Trace Only (05/13/22 07:38) Orphenadrine Inj (Ed Only) (Norflex Inje (05/13/22 07:45) Ketamine Syringe (Ketamine Syringe) (05/13/22 09:00) Medications Given in ED Current Medications Medications Dose Ordered Sig/Deandra Route Start Time Stop Time Status Last Admin Dose Admin Ketamine HCl 25 mg ONCE ONCE IV 05/13/22 09:00 05/13/22 09:01 DC 05/13/22 09:26 25 MG Orphenadrine Citrate 60 mg ONCE ONCE IV 05/13/22 07:45 05/13/22 07:46 DC 05/13/22 08:06 60 MG Vital Signs/I&O 05/13/22 05/13/22 07:33 10:04 Temp 36.3 Pulse 78 87 Resp 18 18 B/P (MAP) 179/94 (122) 184/89 Pulse Ox 99 94 O2 Delivery Room Air Room Air Capillary Refill : Progress Note : Progress Note Patient's diagnostic studies were ordered reviewed and interpreted by me. Patient's x-ray was ordered reviewed with initial interpretation by me with final interpretation per radiology report. EKG showed normal sinus rhythm, ventricular rate 85, RI 135, QRS 102 with maybe some mild left axis deviation with no acute ST changes or elevation. Patient's symptoms consistent with his known cervical vertebral stenosis. He does have appointments with both neurosurgery and pain management. We will give him ketamine infusion to help with his acute pain. I discussed with him that this is temporary and that he will need to keep his appointment with pain management for further long-term management. Patient was stable discharged home. ECG Initial ECG Impression Date: May 13, 2022 Initial ECG Impression Time: 08:17 Initial ECG Rate: 85 Initial ECG Rhythm: Normal Sinus Initial ECG Intervals: Normal Initial ECG Impression: Normal Comment no acute st changes Diagnostic Imaging Diagonstic Imaging: Xray Plain Films/CT/US/NM/MRI: chest Comments Date of Exam:05/13/22 CHEST PA/LAT (2 VIEW) INDICATION: Increasing severity thoracic/chest pain. TECHNIQUE: Two view chest 8:39 AM CORRELATION STUDY: 03/06/2019 FINDINGS: The heart size, mediastinal configuration and pulmonary vasculature are within normal limits. Likely tortuous course thoracic aorta. The lungs are clear with no consolidating infiltrate. There is no significant pleural effusion or pneumothorax. Visualized osseous structures are unremarkable. IMPRESSION: 1. Negative for acute abnormality of the chest. Departure Impression Primary Impression: Chronic pain Qualified Codes: G89.29 - Other chronic pain Additional Impression: Cervical stenosis of spine Disposition: HOME, SELF-CARE Condition: Stable Departure-Patient Inst. Referrals: MALIK MCARTHUR MD (PCP/Family) Primary Care Physician Patient Instructions: Spinal Stenosis (DC), Spinal Stenosis Stretching Exercis es Add. Discharge Instructions: Please follow-up with your neurosurgeon and pain specialist for further management. All discharge instructions reviewed with patient and/or family. Voiced understanding. LEVY DELGADILLO DO May 13, 2022 07:37
[2022-05-13] MEDS ORDERED: ORPHENADRINE 60 MG/2 ML (NORFLEX) AMP (ED ONLY) IV ONE (07:45)
[2022-05-13 08:22] LABS: EOSINOPHILS % (AUTO) 5 % (0-10)
[2022-05-13 08:24] LABS: BASOPHILS % (AUTO) 1 % (0-10); EOSINOPHILS # (AUTO) 0.2 10^3/uL (0.0-0.3); HEMATOCRIT 43 % (40-54); HEMOGLOBIN 14.8 g/dL (13.3-17.7); LYMPHOCYTES # (AUTO) 1.6 10^3/uL (1.0-4.0); LYMPHOCYTES % (AUTO) 38 % (12-44); MEAN CORPUSCULAR HEMOGLOBIN 30 pg (25-34); MEAN CORPUSCULAR HGB CONC 35 g/dL (32-36); MEAN CORPUSCULAR VOLUME 88 fL (80-99); MEAN PLATELET VOLUME 12.6 fL (9.0-12.2); MONOCYTES # (AUTO) 0.3 10^3/uL (0.0-1.0); MONOCYTES % (AUTO) 7 % (0-12); NEUTROPHILS % (AUTO) 49 % (42-75); PLATELET COUNT 79 10^3/uL (130-400); WHITE BLOOD COUNT 4.1 10^3/uL (4.3-11.0)
[2022-05-13 08:35] LABS: ALBUMIN 4.4 GM/DL (3.2-4.5); CHLORIDE 104 MMOL/L (98-107); SODIUM 142 MMOL/L (135-145)
[2022-05-13 08:36] LABS: CALCIUM 9.7 MG/DL (8.5-10.1)
[2022-05-13 08:37] LABS: GLUCOSE 155 MG/DL (70-105); TOTAL PROTEIN 7.5 GM/DL (6.4-8.2)
[2022-05-13 08:38] LABS: CARBON DIOXIDE 27 MMOL/L (21-32)
[2022-05-13 08:39] LABS: BILIRUBIN,TOTAL 0.6 MG/DL (0.1-1.0)
[2022-05-13 08:41] LABS: ALKALINE PHOSPHATASE 33 U/L (40-136); CREATININE SERUM 1.38 MG/DL (0.60-1.30); GFR ESTIMATED 57; SMEAR SCAN COMMENT YES
[2022-05-13 08:42] LABS: BUN/CREATININE RATIO 12
[2022-05-13 08:43] LABS: MAGNESIUM 1.7 MG/DL (1.6-2.4)
--- NOTE | 2022-05-13 08:43 | Diagnostic Imaging Report ---
INDICATION: Increasing severity thoracic/chest pain. TECHNIQUE: Two view chest 8:39 AM CORRELATION STUDY: 03/06/2019 FINDINGS: The heart size, mediastinal configuration and pulmonary vasculature are within normal limits. Likely tortuous course thoracic aorta. The lungs are clear with no consolidating infiltrate. There is no significant pleural effusion or pneumothorax. Visualized osseous structures are unremarkable. IMPRESSION: 1. Negative for acute abnormality of the chest. Dictated by: Dictated on workstation # [id number]
[2022-05-13 08:44] LABS: ALANINE AMINOTRANSFERASE 30 U/L (0-55)
[2022-05-13] MEDS ORDERED: KETAMINE 50 MG/5 ML SYRINGE IV ONE (09:00)
[2022-05-13 10:04] VITALS: BP 184/89
== END 2022-05-13 09:55 | disposition home or self-care (01) ==
LOC: EDUNIT# 07:25 → ER 07:26
DX: G89.29 Other chronic pain (principal); M48.02 Spinal stenosis, cervical region; G47.30 Sleep apnea, unspecified; Z99.89 Dependence on other enabling machines and devices
CPT/HCPCS: 36415; 71046; 80053; 83735; 84484; 85025; 93005; 93041

== ENCOUNTER → 2022-07-24 | Outpatient (CLI) | payer OTHER | LOC: RAD 14:41 | PROVIDERS: ATTEND Nurse Practitioner Primary Care | DX: Z53.9 Procedure and treatment not carried out, unspecified reason (principal) ==